=== PATIENT | male | born 1970 | race Caucasian/White ===

== ENCOUNTER 2017-07-03 11:00 | Emergency (ER) | payer SELFPAY ==
[~2017-07-03] VITALS: Ht 188 cm; Wt 110.7 kg
[2017-07-03 11:11] VITALS: Ht 188 cm; Wt 110.7 kg
[2017-07-03 12:31] VITALS: BP 135/88
== END 2017-07-03 12:31 | disposition home or self-care (01) ==
LOC: ED 11:00
DX: H60.92 Unspecified otitis externa, left ear (principal); Z88.0 Allergy status to penicillin